=== PATIENT | female | born 1965 | race Caucasian/White ===

== ENCOUNTER 2023-01-05 15:23 | Outpatient (CLI) | payer BC | END 2023-01-05 15:24 | disposition home or self-care (01) | LOC: DTY/OP 15:23 | PROVIDERS: ATTEND Surgery | DX: E66.01 Morbid (severe) obesity due to excess calories (principal) | CPT/HCPCS: 97802 ==

== ENCOUNTER 2023-12-12 17:34 | Emergency (ER) | payer BC | END 2023-12-12 22:34 | disposition home or self-care (01) | LOC: ERS 17:34 | DX: M54.42 Lumbago with sciatica, left side (principal) | CPT/HCPCS: 72131; 96372; J1100; J1885 ==